=== PATIENT | male | born 1955 | race Caucasian/White ===

== ENCOUNTER 2024-09-21 11:37 | Outpatient (CLI) | payer MEDICARE, BC | END 2024-09-21 11:38 | disposition home or self-care (01) | LOC: CSHWCC 11:37 | PROVIDERS: ATTEND Nurse Practitioner Family | DX: E10.621 Type 1 diabetes mellitus with foot ulcer (principal); L97.511 Non-pressure chronic ulcer of other part of right foot limited to breakdown of skin; L24.A0 Irritant contact dermatitis due to friction or contact with body fluids, unspecified | CPT/HCPCS: 11042 ==

== ENCOUNTER 2024-10-06 12:50 | Outpatient (CLI) | payer MEDICARE, BC | END 2024-10-06 12:51 | disposition home or self-care (01) | LOC: CSHWCC 12:50 | PROVIDERS: ATTEND Nurse Practitioner Family | DX: E10.621 Type 1 diabetes mellitus with foot ulcer (principal); L97.521 Non-pressure chronic ulcer of other part of left foot limited to breakdown of skin; L97.511 Non-pressure chronic ulcer of other part of right foot limited to breakdown of skin; L24.A0 Irritant contact dermatitis due to friction or contact with body fluids, unspecified | CPT/HCPCS: 11042; 97597 ==

== ENCOUNTER 2024-10-13 12:55 | Outpatient (CLI) | payer MEDICARE, BC | END 2024-10-13 12:56 | disposition home or self-care (01) | LOC: CSHWCC 12:55 | PROVIDERS: ATTEND Nurse Practitioner Family | DX: E10.621 Type 1 diabetes mellitus with foot ulcer (principal); L97.521 Non-pressure chronic ulcer of other part of left foot limited to breakdown of skin; L97.511 Non-pressure chronic ulcer of other part of right foot limited to breakdown of skin; L24.A0 Irritant contact dermatitis due to friction or contact with body fluids, unspecified | CPT/HCPCS: 11042; 99213; G0463 ==

== ENCOUNTER 2024-10-27 13:45 | Outpatient (CLI) | payer MEDICARE, BC | END 2024-10-27 13:46 | disposition home or self-care (01) | LOC: CSHWCC 13:45 | PROVIDERS: ATTEND Nurse Practitioner Family | DX: E10.621 Type 1 diabetes mellitus with foot ulcer (principal); L97.511 Non-pressure chronic ulcer of other part of right foot limited to breakdown of skin; L97.521 Non-pressure chronic ulcer of other part of left foot limited to breakdown of skin; L24.A0 Irritant contact dermatitis due to friction or contact with body fluids, unspecified | CPT/HCPCS: 11042 ==

== ENCOUNTER 2024-11-03 13:48 | Outpatient (CLI) | payer MEDICARE, BC | END 2024-11-03 13:49 | disposition home or self-care (01) | LOC: CSHWCC 13:48 | PROVIDERS: ATTEND Nurse Practitioner Family | DX: E10.621 Type 1 diabetes mellitus with foot ulcer (principal); L97.521 Non-pressure chronic ulcer of other part of left foot limited to breakdown of skin; L97.511 Non-pressure chronic ulcer of other part of right foot limited to breakdown of skin; L24.A0 Irritant contact dermatitis due to friction or contact with body fluids, unspecified | CPT/HCPCS: 11042; 97597; 99213; G0463 ==

== ENCOUNTER 2024-11-10 12:52 | Outpatient (CLI) | payer MEDICARE, BC | END 2024-11-10 12:53 | disposition home or self-care (01) | LOC: CSHWCC 12:52 | PROVIDERS: ATTEND Nurse Practitioner Family | DX: E10.621 Type 1 diabetes mellitus with foot ulcer (principal); L97.511 Non-pressure chronic ulcer of other part of right foot limited to breakdown of skin; L24.A0 Irritant contact dermatitis due to friction or contact with body fluids, unspecified | CPT/HCPCS: 11042 ==

== ENCOUNTER 2024-11-24 14:37 | Outpatient (CLI) | payer MEDICARE, BC | END 2024-11-24 14:38 | disposition home or self-care (01) | LOC: CSHWCC 14:37 | PROVIDERS: ATTEND Nurse Practitioner Family | DX: E10.621 Type 1 diabetes mellitus with foot ulcer (principal); L97.511 Non-pressure chronic ulcer of other part of right foot limited to breakdown of skin; L24.A0 Irritant contact dermatitis due to friction or contact with body fluids, unspecified | CPT/HCPCS: 97597; 99213; G0463 ==

== ENCOUNTER 2024-12-01 09:59 | Outpatient (CLI) | payer MEDICARE, BC | END 2024-12-01 10:00 | disposition home or self-care (01) | LOC: CSHWCC 09:59 | PROVIDERS: ATTEND Nurse Practitioner Family | DX: E10.621 Type 1 diabetes mellitus with foot ulcer (principal); L97.511 Non-pressure chronic ulcer of other part of right foot limited to breakdown of skin; L24.A0 Irritant contact dermatitis due to friction or contact with body fluids, unspecified | CPT/HCPCS: 11042 ==

== ENCOUNTER 2024-12-08 14:06 | Outpatient (CLI) | payer MEDICARE, BC | END 2024-12-08 14:07 | disposition home or self-care (01) | LOC: CSHWCC 14:06 | PROVIDERS: ATTEND Nurse Practitioner Family | DX: E10.621 Type 1 diabetes mellitus with foot ulcer (principal); L97.511 Non-pressure chronic ulcer of other part of right foot limited to breakdown of skin; L24.A0 Irritant contact dermatitis due to friction or contact with body fluids, unspecified | CPT/HCPCS: 11042 ==

== ENCOUNTER 2024-12-15 14:37 | Outpatient (CLI) | payer MEDICARE, BC | END 2024-12-15 14:38 | disposition home or self-care (01) | LOC: CSHWCC 14:37 | PROVIDERS: ATTEND Nurse Practitioner Family | DX: E10.621 Type 1 diabetes mellitus with foot ulcer (principal); L97.511 Non-pressure chronic ulcer of other part of right foot limited to breakdown of skin; L24.A0 Irritant contact dermatitis due to friction or contact with body fluids, unspecified | CPT/HCPCS: 11042 ==

== ENCOUNTER 2024-12-29 13:26 | Outpatient (CLI) | payer MEDICARE, BC | END 2024-12-29 13:27 | disposition home or self-care (01) | LOC: CSHWCC 13:26 | PROVIDERS: ATTEND Nurse Practitioner Family | DX: E10.621 Type 1 diabetes mellitus with foot ulcer (principal); L97.511 Non-pressure chronic ulcer of other part of right foot limited to breakdown of skin; L24.A0 Irritant contact dermatitis due to friction or contact with body fluids, unspecified | CPT/HCPCS: 97597 ==

== ENCOUNTER 2025-01-12 14:03 | Outpatient (CLI) | payer MEDICARE, BC | END 2025-01-12 14:04 | disposition home or self-care (01) | LOC: CSHWCC 14:03 | PROVIDERS: ATTEND Nurse Practitioner Family | DX: E11.621 Type 2 diabetes mellitus with foot ulcer (principal); L97.511 Non-pressure chronic ulcer of other part of right foot limited to breakdown of skin; L24.A0 Irritant contact dermatitis due to friction or contact with body fluids, unspecified | CPT/HCPCS: 97597 ==

== ENCOUNTER 2025-02-22 12:31 | Outpatient (CLI) | payer MEDICARE, BC | END 2025-02-22 12:32 | disposition home or self-care (01) | LOC: CSHWCC 12:31 | PROVIDERS: ATTEND Nurse Practitioner Family | DX: E10.621 Type 1 diabetes mellitus with foot ulcer (principal); L97.512 Non-pressure chronic ulcer of other part of right foot with fat layer exposed; L97.522 Non-pressure chronic ulcer of other part of left foot with fat layer exposed; L08.9 Local infection of the skin and subcutaneous tissue, unspecified | CPT/HCPCS: 11042; 97597; G0463; 99212 ==